=== PATIENT | female | born 1960 | race Caucasian/White ===

== ENCOUNTER 2017-12-31 17:45 | Outpatient (REF) | payer BC, SELFPAY ==
--- NOTE | 2017-12-31 15:30 | SKI_PTH ---
PATIENT: Ciarra Stacy LOC: [facility] U#:[id number] AGE/SX: 57/F ROOM: RE12/31/[address]: Philip García : 1960 BED: DIS: 12/31/2017 SPEC #: [id number] RECD: 01/01/18 12:23 STATUS: VENUS REAta #: [id number] NNAMDI: 12/31/17 15:[address]: Philip García DEPT: Surgical Specimen RECD BY: Salina Eduardo Tissues: 1 - SKIN BIOPSY(SHAVE/PUNCH) Procedures: SKIN LEVEL 4 Comments: [id number]
== END 2017-12-31 18:05 ==
LOC: NCHCN 17:45
PROVIDERS: PCP Family Medicine; Visit Provider Family Medicine
DX: L82.1 Other seborrheic keratosis (principal)
CPT/HCPCS: 88304; 88305

== ENCOUNTER 2019-11-08 18:05 | Outpatient (REF) | payer BC, SELFPAY ==
[2019-11-08 21:11] LABS: HCT 39.5 % (36.0-46.0); HGB 13.3 g/dL (11.2-15.7); MCH 33.1 pg (27.0-33.0); MCHC 33.7 % (32.0-36.0); MCV 98.3 fL (80-95); MPV 11.3 fL (8.0-11.0); Platelet Count 182 10^3/uL (130-400); RBC 4.02 10^6/uL (3.93-5.22); RDW 12.9 % (11.7-14.6); RDW-SD 46.4 fL; WBC 5.02 10^3/uL (4.4-10.8)
[2019-11-08 21:57] LABS: Anion Gap 5.5 mmol/L (3-11); BUN 13 mg/dL (7-18); CO2 31.5 mmol/L (21.0-32.0); CREATININE 0.84 mg/dL (0.55-1.02); Calcium 9.6 mg/dL (8.5-10.1); Chloride 102 mmol/L (98-107); Glucose 105 mg/dL (74-106); Potassium 3.8 mmol/L (3.5-5.1); Sodium 139 mmol/L (136-145); Vitamin B12 698 pg/mL (193-986)
== END 2019-11-08 18:25 ==
LOC: NCHCN 18:05
PROVIDERS: PCP Family Medicine; Visit Provider Nurse Practitioner Family
DX: I10 Essential (primary) hypertension (principal); E03.9 Hypothyroidism, unspecified; M79.7 Fibromyalgia
CPT/HCPCS: 80048; 85027; 82607; 84443

== ENCOUNTER 2019-12-16 14:15 | Outpatient (REF) | payer BC, SELFPAY ==
[2019-12-16 21:35] LABS: TSH 2.42 uIU/mL (0.36-3.74)
== END 2019-12-16 14:35 ==
LOC: NCHCN 14:15
PROVIDERS: PCP Family Medicine; Visit Provider Nurse Practitioner Family
DX: E03.9 Hypothyroidism, unspecified (principal)
CPT/HCPCS: 84443

== ENCOUNTER 2020-12-20 17:04 | Outpatient (REF) | payer BC, SELFPAY ==
[2020-12-20 22:57] LABS: Calculated LDL 124 mg/dL (<100); Cholesterol 209 mg/dL (<200); HDL Cholesterol 42 mg/dL (40-60); TSH 2.56 uIU/mL (0.36-3.74); Triglyceride 219 mg/dL (<150)
== END 2020-12-20 17:05 | disposition home or self-care (01) ==
LOC: NCHCN 17:04
PROVIDERS: PCP Family Medicine; Visit Provider Family Medicine
DX: E03.9 Hypothyroidism, unspecified (principal); Z13.220 Encounter for screening for lipoid disorders
CPT/HCPCS: 80061; 84443

== ENCOUNTER 2021-09-26 10:14 | Outpatient (REF) | payer MEDICARE, SELFPAY ==
[2021-09-26 16:14] LABS: Anion Gap 6.2 mmol/L (3-11); BUN 7 mg/dL (7-18); CO2 28.8 mmol/L (21.0-32.0); CREATININE 0.8 mg/dL (0.55-1.02); Calcium 8.9 mg/dL (8.5-10.1); Chloride 107 mmol/L (98-107); Glucose 126 mg/dL (74-106); Potassium 3.8 mmol/L (3.5-5.1); Sodium 142 mmol/L (136-145)
== END 2021-09-26 10:15 | disposition home or self-care (01) ==
LOC: NCHCN 10:14
PROVIDERS: PCP Family Medicine; Visit Provider Nurse Practitioner Family
DX: U07.1 COVID-19 (principal)
CPT/HCPCS: 80048

== ENCOUNTER 2022-02-20 09:52 | Outpatient (REF) | payer MEDICARE, SELFPAY | END 2022-02-20 09:53 | disposition home or self-care (01) | LOC: NCHCN 09:52 | PROVIDERS: PCP Family Medicine; Visit Provider Nurse Practitioner Family | DX: E03.9 Hypothyroidism, unspecified (principal); Z01.818 Encounter for other preprocedural examination | CPT/HCPCS: 84443 ==

== ENCOUNTER 2023-01-28 11:16 | Outpatient (REF) | payer MEDICARE, SELFPAY ==
[2023-01-28 14:58] LABS: HCT 40.6 % (36.0-46.0); HGB 13.9 g/dL (11.2-15.7); MCH 32.9 pg (27.0-33.0); MCHC 34.2 % (32.0-36.0); MCV 96 fL (80-95); MPV 12.1 fL (8.0-11.0); Platelet Count 174 10^3/uL (130-400); RBC 4.22 10^6/uL (3.93-5.22); RDW 12.5 % (11.7-14.6); RDW-SD 44.4 fL; WBC 4.77 10^3/uL (4.4-10.8)
[2023-01-28 15:21] LABS: Anion Gap 7.5 mmol/L (3-11); BUN 9 mg/dL (7-18); CO2 29.5 mmol/L (21.0-32.0); CREATININE 0.7 mg/dL (0.55-1.02); Calcium 9.3 mg/dL (8.5-10.1); Calculated LDL 149 mg/dL (<100); Chloride 106 mmol/L (98-107); Cholesterol 227 mg/dL (<200); Estimated GFR 97.12 (mL/min/1.73m2); Glucose 82 mg/dL (74-106); HDL Cholesterol 54 mg/dL (40-60); Sodium 143 mmol/L (136-145); TSH 1.44 uIU/mL (0.36-3.74); Triglyceride 120 mg/dL (<150)
== END 2023-01-28 11:17 | disposition home or self-care (01) ==
LOC: NCHCN 11:16
PROVIDERS: PCP Family Medicine; Visit Provider Nurse Practitioner Family
DX: Z51.81 Encounter for therapeutic drug level monitoring (principal)
CPT/HCPCS: 80048; 80061; 85027; 84443

== ENCOUNTER 2023-12-21 18:13 | Outpatient (REF) | payer MEDICARE, SELFPAY ==
[2023-12-21 15:09] LABS: HCT 43.4 % (36.0-46.0); HGB 14.7 g/dL (11.2-15.7); MCH 32.9 pg (27.0-33.0); MCHC 33.9 % (32.0-36.0); MCV 97 fL (80-95); MPV 11.5 fL (8.0-11.0); Platelet Count 215 10^3/uL (130-400); RBC 4.47 10^6/uL (3.93-5.22); RDW 12.7 % (11.7-14.6); RDW-SD 45.1 fL
[2023-12-21 15:28] LABS: PTT Activated 27.2 sec (23.6-32.8); Prothrombin Time 9.7 sec (9.1-11.1)
[2023-12-21 15:30] LABS: Anion Gap 7.1 mmol/L (3-11); BUN 5 mg/dL (7-18); CO2 30.9 mmol/L (21.0-32.0); CREATININE 0.8 mg/dL (0.55-1.02); Calcium 9.9 mg/dL (8.5-10.1); Chloride 107 mmol/L (98-107); Estimated GFR 82.74 (mL/min/1.73m2); Glucose 83 mg/dL (74-106); Potassium 4.5 mmol/L (3.5-5.1); Sodium 145 mmol/L (136-145)
[2023-12-21 16:22] LABS: MRSA PCR Negative (Negative)
[2023-12-22 14:33] LABS: TSH (W/Ref FT4) 1.14 uIU/mL (0.36-3.74)
== END 2023-12-21 18:14 | disposition home or self-care (01) ==
LOC: NCHCN 18:13
PROVIDERS: PCP Nurse Practitioner Family; Visit Provider Nurse Practitioner Family
DX: M48.02 Spinal stenosis, cervical region (principal); Z78.9 Other specified health status
CPT/HCPCS: 80048; 85027; 87641; 84443; 85610; 85730

== ENCOUNTER 2024-09-27 13:17 | Outpatient (REF) | payer MEDICARE, SELFPAY ==
[2024-09-27 21:48] LABS: HCT 40.7 % (36.0-46.0); HGB 13.8 g/dL (11.2-15.7); MCH 32.5 pg (27.0-33.0); MCHC 33.9 % (32.0-36.0); MCV 96 fL (80-95); MPV 11.9 fL (8.0-11.0); Platelet Count 197 10^3/uL (130-400); RBC 4.24 10^6/uL (3.93-5.22); RDW 12.5 % (11.7-14.6); RDW-SD 43.8 fL; WBC 5.44 10^3/uL (4.4-10.8)
[2024-09-27 22:40] LABS: ALT 31 U/L (14-59); AST 27 U/L (15-37); Albumin 4.2 g/dL (3.4-5.0); Alkaline Phosphatase 94 U/L (46-116); Anion Gap 8.1 mmol/L (3-11); BUN 7 mg/dL (7-18); Bilirubin, Total 0.3 mg/dL (0.2-1.0); CO2 29.9 mmol/L (21.0-32.0); Calcium 9.2 mg/dL (8.5-10.1); Calculated LDL 118 mg/dL (<100); Chloride 105 mmol/L (98-107); Cholesterol 205 mg/dL (<200); Estimated GFR 82.23 (mL/min/1.73m2); Glucose 93 mg/dL (74-106); HDL Cholesterol 46 mg/dL (>or=50); Potassium 4.2 mmol/L (3.5-5.1); Sodium 143 mmol/L (136-145); TSH (W/Ref FT4) 1.45 uIU/mL (0.36-3.74); Total Protein 6.8 g/dL (6.4-8.2); Triglyceride 206 mg/dL (<150); Vitamin B12 645 pg/mL (193-986)
== END 2024-09-27 13:18 | disposition home or self-care (01) ==
LOC: NCHCN 13:17
PROVIDERS: PCP Nurse Practitioner Family; Visit Provider Nurse Practitioner Family
DX: E03.9 Hypothyroidism, unspecified (principal); R06.09 Other forms of dyspnea
CPT/HCPCS: 80053; 80061; 85027; 82607; 82746; 84443

== ENCOUNTER 2024-10-27 02:35 | Outpatient (CLI) | payer MEDICARE, SELFPAY ==
--- NOTE | 2024-10-27 | DI.NM_ITS ---
APPROVED REPORT Exam: Pharmacologic Patient Location: Out-Patient Room/Bed: Stress Nurse: ALEJANDRA Lewis Ordering Provider:ISAIAH REID, Contact Number: [phone] BMI: 32.78 Baseline Rhythm: Sinus Bradycardia. Comment: One rare PAC. T wave inversion in aVL and V2. Indications: Dyspnea on Exertion. Medical History Medical History: Panic Attack; HLD; Disorder of Thoracic Aorta; Diameter of Ascending Aorta is Enlarged at 4.3cm; Fibromyalgia; Anxiety; Chronic Pain; Hypothyroidism; Obesity; Somatoform Disorder; Hx of Malignant Neoplasm; Hx of Radiation Exposure; Hx of Chemotherapy. Cardiac Medications: Acetylcysteine; Buspirone; Celecoxib; Diazepam; Levothyroxine; Propranolol; Sertraline; Trazodone. Allergies: None. Cardiac Risk Factors: HLD; Obesity. Previous Cardiac Procedures: None. Pretest Chest Pain Characteristics: None. Exercise History: Indeterminate. Physical Disabilities: Pt. uses a straight cane for ambulation. Lung Sounds: Clear bilaterally throughout, anterior and posterior. Heart Sounds: S1 and S2 auscultated. Stress Test Details Test: Pharmacologic stress was paired with low level exercise. Reason for pharmacologic stress test: physical limitation. Nuclear Acquisition: Rest Tc-99m/Stress Tc-99m 1 day Rest Isotope: Tc-99m Sestamibi. Dose: 9.5 Date: 10/27/2024 Injection Time: 1110 Stress Isotope: Tc-99m Sestamibi. Dose: 31.5 Date: 10/27/2024 Injection Time: 1240 HR Resting HR Supine: 59 bpm Max Heart Rate (APMHR): 156 bpm Resting HR Standin bpm Target HR (85% APMHR): 133 bpm Max HR Achieved: 108 bpm % of APMHR: 69 Recovery HR: 71 bpm BP Resting BP Supine: 124/78 mmHg Resting BP Standin/84 mmHg Max BP: 160/84 mmHg Recovery BP: 138/88 mmHg ECG Resting ECG: Sinus Bradycardia. Ectopy: One rare PAC. Comment: T wave inversion in aVL and V2. Stress ECG: Sinus Rhythm. ST Change: Nondiagnostic low heart rate. Arrhythmia: One rare PAC. Comment: T wave inversion in aVL and V2. Recovery ECG: Sinus Rhythm. Recovery ST Change: Nondiagnostic low heart rate. Recovery Arrhythmia: None. Comment: T wave inversion in aVL and V2. Clinical Stress Symptoms: None. Angina Score: None Rate Pressure Product: [id number] Stress ECG Conclusion 1. Resting electrocardiogram was normal 2. Patient underwent testing using pharmacologic stress with regadenoson 3. Peak heart rate achieved was 69% of maximal predicted for age 4. The electrocardiographic portion of the test was nondiagnostic 5. There were no significant dysrhythmias 6. See MPI report Stress Test Summary STAGE HR BP SpO2 Symptoms NOTES Supine 59 124/78 945 Standing 65 142/84 95 1 min post Lexiscan injection 93 93 3 min post Lexiscan injection 85 160/84 96 6 min post Lexiscan injection 80 150/92 95 9 min post Lexiscan injection 71 138/88 94 Pt. performed an MPI stress test using a walking lexiscan protocol. Lexiscan used per pt.'s provider's order for a pharmacological nuclear stress test. Pt. was asymptomatic throughout the stress test. Pt. was conversing pleasantly with nursing staff upon leaving the Stress Lab and left ambulatory in no apparent distress. MPI Conclusion Myocardial perfusion is normal. There is no ischemia or evidence of prior infarction Ejection fraction is 71% with normal wall motion
[2024-10-27] MEDS: Regadenoson 0.4 MG/5 ML SYR IVP (12:39)
== END 2024-10-27 02:55 ==
PROVIDERS: PCP Nurse Practitioner Family; Visit Provider Internal Medicine Cardiovascular Disease
DX: R06.09 Other forms of dyspnea (principal)
CPT/HCPCS: 78452; 93016; 93018; 93017; J2785